=== PATIENT | male | born 1990 | race African-American/Black ===

== ENCOUNTER 2017-07-04 21:29 | Emergency (ER) | payer SELFPAY ==
[2017-07-04] MEDS ORDERED: HYDROcodone/Acetaminophen 10/325 mg Tablet ONE (22:04)
[2017-07-04] MEDS ORDERED: Ibuprofen 800 MG TAB ONE (22:04)
== END 2017-07-04 22:39 | disposition home or self-care (01) ==
LOC: MADERS 21:29
DX: J06.9 Acute upper respiratory infection, unspecified (principal); F17.210 Nicotine dependence, cigarettes, uncomplicated
CPT/HCPCS: 99283

== ENCOUNTER 2018-04-23 11:53 | Emergency (ER) | payer SELFPAY ==
--- NOTE | 2018-04-23 13:21 | RAD ---
LEFT KNEE FOUR VIEWS: INDICATIONS: Left knee pain without trauma. COMPARISON: None. FINDINGS: No acute fracture or subluxation is evident. No definite joint capsular distention is noted. IMPRESSION: No acute osseous abnormality. POS: [facility]
== END 2018-04-23 13:26 | disposition home or self-care (01) ==
LOC: MADERS 11:53
DX: M25.562 Pain in left knee (principal); F17.210 Nicotine dependence, cigarettes, uncomplicated

== ENCOUNTER 2018-10-19 19:25 | Emergency (ER) | payer SELFPAY ==
[2018-10-19] MEDS ORDERED: Ibuprofen 800 MG TAB ONE (19:52)
== END 2018-10-19 20:28 | disposition home or self-care (01) ==
LOC: MADERS 19:25
DX: J02.9 Acute pharyngitis, unspecified (principal); F17.210 Nicotine dependence, cigarettes, uncomplicated
CPT/HCPCS: 87081; 87430; 87804; 99283

== ENCOUNTER 2019-10-19 01:55 | Emergency (ER) | payer SELFPAY | END 2019-10-19 02:40 | disposition home or self-care (01) | LOC: MADERS 01:55 | DX: S00.93XA Contusion of unspecified part of head, initial encounter (principal); S00.31XA Abrasion of nose, initial encounter; F43.10 Post-traumatic stress disorder, unspecified; F17.210 Nicotine dependence, cigarettes, uncomplicated; W20.8XXA Other cause of strike by thrown, projected or falling object, initial encounter | CPT/HCPCS: 99283 ==